=== PATIENT | male | born 1995 ===

== ENCOUNTER 2018-06-29 18:32 | Emergency (ER) | payer OTHER ==
[2018-06-29 18:32] VITALS: BMI 19.1
[2018-06-29 18:49] VITALS: PULSE 68; RESP 17; TEMP 98.5; O2SAT 97
[2018-06-29 18:50] VITALS: BP 111/68
--- NOTE | 2018-06-29 19:31 | C.PDOC ---
History Of Present Illness 22 year old male presents to the ED c/o left hand numbness. Patient reports Police had him in cuff on Wednesday, states cuffs were too tight and now c/o left hand numbness. Patient denies rash, fever, chills, injury, fall, trauma, weakness. Time Seen by Provider: 06/29/18 19:20 Chief Complaint (Nursing): Upper Extremity Problem/Injury History Per: Patient History/Exam Limitations: no limitations Onset/Duration Of Symptoms: Days Current Symptoms Are (Timing): Still Present Quality: Other Recent travel outside of the [place]: No Additional History Per: Patient Past Medical History Reviewed: Historical Data, Nursing Documentation, Vital Signs Vital Signs: Last Vital Signs Temp 98.5 F 06/29/18 18:44 Pulse 68 06/29/18 18:44 Resp 17 06/29/18 18:44 BP 111/68 06/29/18 18:44 Pulse Ox 97 06/29/18 18:44 Primary Care Provider: Avtar Phillip - Medical History PMH: Asthma Surgical History: No Surg Hx Family History: States: Unknown Family Hx - Social History Hx Tobacco Use: No Hx Alcohol Use: No Hx Substance Use: Yes - Immunization History Hx Influenza Vaccination: Yes Review Of Systems Constitutional: Negative for: Fever, Chills, Weakness ENT: Negative for: Throat Pain Respiratory: Negative for: Cough, Shortness of Breath Gastrointestinal: Negative for: Vomiting, Diarrhea Musculoskeletal: Positive for: Hand Pain Skin: Negative for: Rash Neurological: Positive for: Numbness (left hand). Negative for: Weakness, Headache, Dizziness Physical Exam - Physical Exam Appears: Well, Non-toxic, No Acute Distress Skin: Normal Color, Warm, Dry Head: Atraumatic, Normacephalic Eye(s): bilateral: Normal Inspection (no scleral icterus), PERRL, EOMI Nose: Normal Neck: Normal ROM, Supple Extremity: Normal ROM, No Tenderness, Capillary Refill (< 2 seconds), No Swelling, Other (left wrist some abrasions noted, decreased sensation to dorsal aspect of right hand) Pulses: Left Radial: Normal, Right Radial: Normal Neurological/Psych: Oriented x3, Normal Speech, Normal Cognition, Normal Motor, Normal Sensation Gait: Steady ED Course And Treatment O2 Sat by Pulse Oximetry: 97 (ON RA) Pulse Ox Interpretation: Normal Medical Decision Making Medical Decision Making: Patient was advised to follow up with PMD/clinic for further evaluation. Disposition Counseled Patient/Family Regarding: Diagnosis, Need For Followup - Disposition Disposition: HOME/ ROUTINE Disposition Time: 19:30 Condition: STABLE Instructions: Paresthesias (DC) Forms: [facility] ([place]), General Discharge Instructions - Clinical Impression Clinical Impression: Paresthesias in left hand - PA / [employer] / Resident Statement MD/DO has reviewed & agrees with the documentation as recorded. - Scribe Statement The provider has reviewed the documentation as recorded by the Scribe Parmjit Doe All medical record entries made by the Kaveh were at my direction and personally dictated by me. I have reviewed the chart and agree that the record accurately reflects my personal performance of the history, physical exam, medical decision making, and the department course for this patient. I have also personally directed, reviewed, and agree with the discharge instructions and disposition.
== END 2018-06-29 19:35 | disposition home or self-care (01) ==
LOC: C.ER 18:32
DX: R20.2 Paresthesia of skin (principal)